=== PATIENT | male | born 1950 | race Caucasian/White ===

== ENCOUNTER 2022-11-07 11:49 | Inpatient (IN) | payer MEDICARE, BC ==
[~2022-11-07] VITALS: Ht 177.8 cm; Wt 79.8 kg
[2022-11-07] MEDS ORDERED: FLUT1BLS IH (12:22)
[2022-11-07] MEDS ORDERED: METO25TA6 PO (12:22)
[2022-11-07] MEDS ORDERED: ATOR20TA PO (12:22)
[2022-11-07] MEDS ORDERED: VALS80TA2 PO (12:22)
[2022-11-07] MEDS ORDERED: APIX5TAB PO (12:23)
[2022-11-07] MEDS ORDERED: ONDANSETRON 4 MG/2 ML VIAL IV ONE (12:30)
[2022-11-07] MEDS ORDERED: TDAP DIPH,PERTUSS,TET VAC/PF 0.5 ML DISP.SYRIN IM ONE (12:30)
--- NOTE | 2022-11-07 12:30 | NUR ---
Pt arrived in the ED, accompanied by a co-worker, w/ c/o unwitnessed fall. Pt was KO - per co-worker, uncertain of how long. Pt hit his head on the ladder, presenting laceration on the scalp, approximately 8cm long. Also presented skin tears on the R wrist and L thumb. Blurry vision on the R eye, headache 12/31, denies n/v. Hard cervical collar placed. Cleaned lacerated wounds. Seen by Dr. Sainz for MSE. Addendum: 11/07/22 at 1505 by FRANCY Amendment undone in EDM - 11/07/22 at 1508 by FRANCY Called radiology for pt's ordered CT x3. salvage engineering technician updated/reminded, spoke to Ulises.
[2022-11-07 12:42] LABS: HEMATOCRIT 43.8 % (36.7-47.1); MEAN CORPUSCULAR HEMOGLOBIN 27.8 uug (23.8-33.4); PLATELET COUNT (AUTO) 251 K/uL (152-348)
[2022-11-07] MEDS ORDERED: IV NORMAL SALINE 250 ML IV ONE ×2 (13:51→14:48)
[2022-11-07] MEDS ORDERED: IOHEXOL 300MG/ML 100 ML INFUS..BTL ONE ×2 (13:51→14:48)
[2022-11-07] MEDS ORDERED: SWABABLE VALVE TRANSFER SET EA MC ONE ×2 (13:51→14:48)
[2022-11-07 14:57] LABS: *BILIRUBIN,URIN NEGATIVE (NEGATIVE); *BLOOD, URINE NEGATIVE (NEGATIVE); *CLARITY,URINE CLEAR (CLEAR); *COLOR,URINE YELLOW (YELLOW); *KETONES,URINE NEGATIVE (NEGATIVE); *UROBILINOGEN,URINE 0.2 E.U./dl (NORMAL); LEUKOCYTE ESTERASE ,URINE NEGATIVE (NEGATIVE); NITRITE, URINE NEGATIVE (NEGATIVE); PH,URINE 5.5 (5.0-8.0); UGLUCOSE NEGATIVE (NEGATIVE)
--- NOTE | 2022-11-07 15:07 | NUR ---
Pt arrived in the ED, accompanied by a co-worker, w/ c/o unwitnessed fall. Pt was KO - per co-worker, uncertain of how long. Pt hit his head on the ladder, presenting laceration on the scalp, approximately 8cm long. Also presented skin tears on the R wrist and L thumb. Blurry vision on the R eye, headache 4/10, denies n/v. Hard cervical collar placed. Cleaned lacerated wounds. Seen by Dr. Sainz for MSE.
--- NOTE | 2022-11-07 15:08 | NUR ---
Called radiology for pt's ordered CT x3. database software technician updated/reminded, spoke to Ulises.
[2022-11-07 17:01] LABS: CARBON DIOXIDE 27 mmol/L (21-32); CHLORIDE 101 mmol/L (98-107); GLUCOSE 159 mg/dL (74-106); POTASSIUM 3.4 mmol/L (3.5-5.1)
[2022-11-07 17:02] LABS: BILIRUBIN,DIRECT 0.2 mg/dL (0.0-0.2); BILIRUBIN,TOTAL 0.5 mg/dL (0.2-1.0); CREATININE 1.2 mg/dL (0.6-1.3); UREA NITROGEN, BLOOD 23 mg/dL (7-18)
[2022-11-07 17:03] LABS: ALANINE AMINOTRANSFERASE 20 U/L (16-63); ALKALINE PHOSPHATASE 100 U/L (50-136); ASPARTATE AMINOTRANSFERASE 22 U/L (15-37)
[2022-11-07 17:04] LABS: TOTAL PROTEIN, SERUM 7.5 g/dL (6.4-8.2)
[2022-11-07] MEDS ORDERED: ACETAMINOPHEN 325 MG TABLET PO ONE (17:30)
[2022-11-07] MEDS ORDERED: MAGNESIUM HYDROXIDE 30 ML LIQUID UDC PO PRN (18:00)
[2022-11-07] MEDS ORDERED: ENOXAPARIN SODIUM 40 MG/0.4 ML DISP.SYRIN SQ SCH ×2 (18:00→21:00)
[2022-11-07] MEDS ORDERED: ONDANSETRON 4 MG/2 ML VIAL IV PRN (18:00)
[2022-11-07] MEDS ORDERED: HYDROCODONE/APAP 5-325MG TABLET PO PRN (18:00)
[2022-11-07] MEDS ORDERED: IV NS 1000 ML 1,000 ML IV ONE (18:00)
[2022-11-07] MEDS ORDERED: REMEDY ESSENTIAL ZINC PASTE 113 GM TP PRN (18:00)
[2022-11-07 18:35] LABS: ETHANOL < 3 MG/DL (0-0)
[2022-11-07 18:42] LABS: *AMPHETAMINE, URINE NEGATIVE (NEGATIVE); *CANNABINOID, URINE NEGATIVE (NEGATIVE); *COCCAINE, URINE NEGATIVE (NEGATIVE); *PHENCYCLIDINE SCREEN,URINE NEGATIVE (NEGATIVE)
[2022-11-07 18:48] LABS: CREATINE KINASE, TOTAL 122 U/L (39-308)
--- NOTE | 2022-11-07 18:51 | NUR ---
Pt will be admitted under the medical care of Maurisio Tejeda NP, Telemetry unit. No room assignment for now, will receive update/call back from charge nurse at Tele.
--- NOTE | 2022-11-07 19:06 | NUR ---
Endorsed to Roseline GUTIERREZ.
--- NOTE | 2022-11-07 19:41 | NUR ---
Patient assigned to ROOM 321
--- NOTE | 2022-11-07 19:46 | NUR ---
Endorsed to Aaliyah Gagnon TELE
--- NOTE | 2022-11-07 20:11 | NUR ---
Patient is a/ox4, NAD noted. patient is ambulatory with steady gait
--- NOTE | 2022-11-07 20:44 | NUR ---
Pt. admitted to TELE room 321 , under care of Nikhil TINEO Belongs List completed PAtient is a/ox4, NAD noted. patient ambulates with steady gait
--- NOTE | 2022-11-07 21:30 | NUR ---
Admitted 72 yr old male diagnosed with syncope s/p fall of a ladder. AAOx4. Pt has laceration to the right side of the head repaired with trevon. Denies dizziness or headache. SR on Tele. Ambulatory with steady gait. IV on R AC 20 g intact and patent running NS at 75 cc/hr. Routine admission done. All needs attended. Safety precautions observed. Will continue to monitor.
[2022-11-07 21:43] VITALS: BP 144/75
[2022-11-08] VITALS: BP 124/64
[2022-11-08] MEDS: ACETAMINOPHEN 325 MG TABLET PO PRN ×2 (01:02→11:41)
[2022-11-08 04:08] VITALS: BP 120/78
[2022-11-08 07:19] LABS: HEMATOCRIT 43.8 % (36.7-47.1); MEAN CORPUSCULAR VOLUME 85.9 fL (73.0-96.2); PLATELET COUNT (AUTO) 244 K/uL (152-348)
[2022-11-08 07:44] LABS: ALANINE AMINOTRANSFERASE 19 U/L (16-63); ALKALINE PHOSPHATASE 97 U/L (50-136); ASPARTATE AMINOTRANSFERASE 16 U/L (15-37); BILIRUBIN,DIRECT 0.2 mg/dL (0.0-0.2); BILIRUBIN,TOTAL 0.7 mg/dL (0.2-1.0); CARBON DIOXIDE 29 mmol/L (21-32); CHLORIDE 102 mmol/L (98-107); CHOLESTEROL 141 mg/dL (<200); GLUCOSE 106 mg/dL (74-106); HDL CHOLESTEROL 49 mg/dL (40-60); MAGNESIUM 2.1 mg/dL (1.8-2.4); PHOSPHOROUS 3.8 mg/dL (2.5-4.9); POTASSIUM 3.9 mmol/L (3.5-5.1); TOTAL PROTEIN, SERUM 7.2 g/dL (6.4-8.2); TRIGLYCERIDES 38 MG/DL (30-150); UREA NITROGEN, BLOOD 19 mg/dL (7-18)
--- NOTE | 2022-11-08 08:00 | NUR ---
Report rec'd Pt AAO x 3 No distress noted. Denies pain or discomfort. No nauses vomiting. neuro changes. Pt instructed to call for assistance. Call light within reach.
[2022-11-08] MEDS ORDERED: PANTOPRAZOLE SODIUM 40 MG VIAL IV SCH (09:00)
[2022-11-08] MEDS ORDERED: METOPROLOL TARTRATE 25 MG TABLET PO SCH (09:00)
[2022-11-08] MEDS ORDERED: ATORVASTATIN 20 MG TABLET PO SCH (09:00)
[2022-11-08] MEDS ORDERED: VALSARTAN 80 MG TABLET PO SCH (09:00)
[2022-11-08 10:16] LABS: THYROID STIMULATING HORMONE 1.289 mIU/mL (0.358-3.740)
--- NOTE | 2022-11-08 15:26 | NUR ---
CT SCAN DONE RESULTS EVALUATED BY MD. PATIENT D/C TO HOME. INSTRUCTIONS GIVEN. PT TO F/U FOR STAPLE REMOVAL IN ED OR WITH PCP.
[2022-11-08 16:30] VITALS: BP 101/59
== END 2022-11-08 15:15 | disposition home or self-care (01) | DRG 74 ==
LOC: ER 11:49 → TELE3 20:00
PROVIDERS: ADMIT Nurse Practitioner Acute Care; ATTEND Nurse Practitioner Acute Care
DX: G90.8 Other disorders of autonomic nervous system (principal); E86.0 Dehydration; I48.0 Paroxysmal atrial fibrillation; Z79.01 Long term (current) use of anticoagulants; D72.829 Elevated white blood cell count, unspecified; E78.5 Hyperlipidemia, unspecified; E87.5 Hyperkalemia; I10 Essential (primary) hypertension; I25.10 Atherosclerotic heart disease of native coronary artery without angina pectoris; Z86.73 Personal history of transient ischemic attack (TIA), and cerebral infarction without residual deficits; W11.XXXA Fall on and from ladder, initial encounter; S01.01XA Laceration without foreign body of scalp, initial encounter; Y93.9 Activity, unspecified; Y92.009 Unspecified place in unspecified non-institutional (private) residence as the place of occurrence of the external cause; N40.0 Benign prostatic hyperplasia without lower urinary tract symptoms
CPT/HCPCS: 36415; 70450; 71260; 72125; 83735; 84100; 84153; 84443; 84484; 85025; 85730; 86850; 86900; 86901; 90715; A4663; C9113; G0378; G0480; J1650; J2405; J7040; Q9967